=== PATIENT | female | born 1960 | race Hispanic/Latino ===

== ENCOUNTER → 2018-12-21 | Day surgery (SDC) | payer OTHER ==
[~2018-12-21] MED LIST: ALEVE220 M1 PO; FENTANYL CITRATE/PF 100MCG/2 ML INJ ONE; LIDOCAINE HCL 2% LOCAL INJ 5 ML SDV VIAL INJ ONE; MIDAZOLAM HCL 2 MG/2 ML VIAL ONE; NEXIUM40 MG PO; PROPOFOL IV EMULSION 10 MG/ML 50 ML VIAL ONE
[2018-12-21 08:40] VITALS: BP 118/77
--- NOTE | 2018-12-21 10:54 | Operative Report ---
DATE OF PROCEDURE: 12/21/2018 SURGEON: Atif Estrada MD PROCEDURES: Esophagogastroduodenoscopy with biopsies and esophageal dilatation. INDICATIONS FOR EGD: Dysphagia, upper abdominal pain, and bloating. MEDICATIONS: The patient was done under MAC, please see anesthesiologist's note. PROCEDURE IN DETAIL: With the patient in left lateral decubitus position, a flexible fiberoptic Olympus gastroscope was introduced into the esophagus under direct visualization without any difficulty. There was some patchy erythema noted in the distal esophagus. A minute nodule was noted at the GE junction that was biopsied. There was a mild stricture noted at the GE junction that was dilated to size 52-Marshallese Carroll. The scope was then advanced with ease into the stomach. Mucosa overlying the antrum and the body revealed some patchy intense erythema and low-grade to moderate edema and biopsies were obtained and sent to stain for H pylori. Pylorus was of normal contour and shape, it was intubated with ease and the scope was advanced all the way to the second portion of the duodenum. The scope was then withdrawn slowly and biopsies were obtained from the proximal second portion and the duodenal bulb to rule out sprue. The scope was then withdrawn back into the stomach and retroflexed and several hyperplastic appearing polyps were noted in the fundus, some were partially excised with cold biopsy forceps. The fundoplication appeared to be intact. The scope was then straightened out. The stomach was decompressed. The scope was subsequently withdrawn. The patient tolerated the procedure well. IMPRESSION: 1. Distal esophagitis, mild. 2. Esophageal stricture at the gastroesophageal junction dilated to size 52-Marshallese Carroll. 3. Minute nodule, gastroesophageal junction biopsied. 4. Status post Jessenia fundoplication. 5. Gastric polyps, fundus, some partially excised with cold biopsy forceps. 6. Gastritis, biopsied. Biopsies sent to stain for Helicobacter pylori. 7. Rule out sprue. PLAN: Follow up histology. Initiate or increase Protonix to 40 mg one p.o. a.c. b.i.d. Atif Estrada MD [facility]/JOSE ALBERTOL /[id number] cc: Eloy Stark MD
== END | disposition home or self-care (01) ==
LOC: OR 06:00
PROVIDERS: ATTEND Internal Medicine Gastroenterology
DX: K20.9 Esophagitis, unspecified (principal); K29.50 Unspecified chronic gastritis without bleeding; K31.89 Other diseases of stomach and duodenum; K62.5 Hemorrhage of anus and rectum; K59.00 Constipation, unspecified; N39.0 Urinary tract infection, site not specified; R00.1 Bradycardia, unspecified; R03.0 Elevated blood-pressure reading, without diagnosis of hypertension; M32.9 Systemic lupus erythematosus, unspecified; F41.9 Anxiety disorder, unspecified; Z01.810 Encounter for preprocedural cardiovascular examination; Z68.30 Body mass index [BMI] 30.0-30.9, adult; Z80.0 Family history of malignant neoplasm of digestive organs
CPT/HCPCS: 43450; 93005; J2001; J2250

== ENCOUNTER → 2019-04-30 | Day surgery (SDC) | payer OTHER ==
[~2019-04-30] MED LIST changes: +ACETAMINOPHEN 1000 MG/100 ML IV ONE; +BACITRACIN 50,000 UNIT VIAL ONE; +BUPIVACAINE HCL 0.5% INJ 30 ML VIAL INJ ONE; +BUPROPION XL150 MG PO; +CEFAZOLIN SOD 1 GM/NS 50ML 100 ML IV ONE; +DEXAMETHASONE SOD PHOS INJ 4 MG/ML VIAL ONE; +KETOROLAC TROMETHAMINE 30 MG/ML VIAL ONE; +LEVOTHYROXINE50 MCG PO; +MAGNESIUM OXID400 MG PO; +MORPHINE SULFATE INJ 4 MG/ML INJ 1ML ONE; +ONDANSETRON HCL INJ 2MG/ML 2ML 2 MG/ML VIAL ONE; +PROPOFOL IV EMULSION 10 MG/ML 20 ML VIAL ONE; -PROPOFOL IV EMULSION 10 MG/ML 50 ML VIAL ONE; +SEVOFLURANE INHAL SOLN 250 ML PEN BTL ONE; +ULTRAM50 MG PO; +VITAMIN B-121000 MCG PO; +VITAMIN D350000 UNIT PO
--- OUTSIDE RECORDS SUMMARY | 2019-04-30 05:49 | XMS REPORT ---
Author [facility] Address Unknown Phone Unavailable Care Team Providers Care Behavioral [facility] Aide Name Role Phone Unavailable Unavailable Payers Payer Name Policy Type Policy Number Effective Date Expiration Date Problems This patient has no known problems. Allergies, Adverse Reactions, Alerts Allergy Name Allergy Type Status Severity Reaction(s) Onset Date Inactive Date Treating Clinician Comments No Known Allergies DA Active U 2019-04-22 00:00:00 Medications This patient has no known medications. Results Test Description Test Time Test Comments Text Results Atomic Results Result Comments - XR TIBIA/FIBULA 2 V LT 2019-04-22 17:32:00 Patient Name: LYSSA GOLDEN Unit No: [id number] EXAMS: CPT: [id number] XR TIBIA/FIBUL[place] 2 [place] [address] COMPARISON: None available CLINICAL HISTORY: ANKLE SWELLING, INJURY RADIOGRAPHS: 2 views left tibia- fibula FINDINGS: There is a Blackwell B fracture of the distal fibula. Joint spaces are well maintained. There is no radiopaque foreign body or soft tissue gas. There is no osseous erosion. IMPRESSION: Please see ankle x-ray report discussing the distal fibular fracture at the ankle joint. No other fractures are visible. 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 No displacement. The ankle mortise does not appear to be widened. No other fractures are currently seen. Joint spaces are well maintained. There is no radiopaque foreign body or soft tissue gas. There is no osseous erosion. IMPRESSION: Blackwell B fracture of the distal fibula at 1731 Reported and signed by: Juan Shearer MD CC: Johanny Navarrete CIRCUIT RIDER; Nakul Aden MD Technologist: Krishan Carrero Time: DAP (Gy m2): Air Kerma (mGy): Trscr Dt/Tm: 04/22/2019 (1731) by:[email or web address] Orig Print D/T: S: 04/22/2019 (0601) BATCH NO: N/A Name: LYSSA GOLDEN Phys: Johanny Chairez [employer] [facility] : 1960 Age: 59 Sex: F Zachary Marrero Loc: T.ERS Exam Date: 04/22/2019 Status: REG ER PH: FAX: PAGE 1 Signed Report
[2019-04-30 10:45] VITALS: BP 134/71
--- NOTE | 2019-04-30 14:45 | Operative Report ---
DATE OF PROCEDURE: 04/30/2019 SURGEON: Charles Mcclain MD PREOPERATIVE DIAGNOSIS: Left bimalleolar equivalent ankle fracture. POSTOPERATIVE DIAGNOSIS: Left bimalleolar equivalent ankle fracture. OPERATIONS AND PROCEDURES PERFORMED: 1. The patient underwent a closed reduction of the left ankle mortise. 2. An open reduction and internal fixation of a left fibular fracture. TEST BAKER: KATALINA Rick. ANESTHESIA: General endotracheal intubation anesthesia. IV FLUIDS: Per the anesthesia record. BRIEF DESCRIPTION OF THE PATIENT'S OPERATIVE PROCEDURE: Ms. Gallo was taken to the operating room and placed in the supine position on the operating room table. Following induction of general anesthesia as well as endotracheal intubation, the patient's left lower extremity was examined under anesthesia. She was found to have bruising and swelling about the left ankle joint. Fluoroscopic evaluation of the left ankle demonstrated a displaced fibular fracture with widening of the ankle mortise. The patient's lower extremity was prepped and draped in standard surgical fashion. The case was begun by creating an incision over the lateral aspect of the fibula. This incision was carried through skin only. Blunt dissection was used to deepen the incision to the lateral aspect of the fibula. Care was taken to identify and protect the superficial peroneal nerve throughout this portion of the case. The fracture site was easily identified and isolated. The fracture site was clean. A fracture reduction clamp was used to reduce the fracture to an anatomic position. A plate was then contoured to the lateral aspect of the fibula and this plate was affixed to the fibula with a combination of cortical and locking screws. This provided rigid stabilization of the patient's injury. Repeat fluoroscopic evaluation of the ankle joint demonstrated reduced fracture and ankle mortise. The hardware was in good position. The wound was copiously irrigated. The wound was then closed in a multilayer fashion. A well-padded multisided splint was then affixed to the left lower extremity. The patient was then awakened and taken to the postanesthesia care unit in stable condition. Nathaly Lau acted as certified first assistant for this case and was necessary for both prepping and draping the patient as well as the retraction of soft tissue and the closure of the wound that allowed this case to be successful. Edward B Mcclain, MD [facility] /[id number]
== END | disposition home or self-care (01) ==
LOC: OR 05:46
PROVIDERS: ATTEND Specialist
DX: S82.842A Displaced bimalleolar fracture of left lower leg, initial encounter for closed fracture (principal); S93.422A Sprain of deltoid ligament of left ankle, initial encounter; Z01.810 Encounter for preprocedural cardiovascular examination
CPT/HCPCS: 76000; 93005; J0690; J1100; J1885; J2001; J2250; J2270; J2405; J3010

== ENCOUNTER 2019-09-16 17:00 | Outpatient (RCR) | payer OTHER ==
[~2019-09-16 17:00] MED LIST changes: -ACETAMINOPHEN 1000 MG/100 ML IV ONE; -BACITRACIN 50,000 UNIT VIAL ONE; -BUPIVACAINE HCL 0.5% INJ 30 ML VIAL INJ ONE; -CEFAZOLIN SOD 1 GM/NS 50ML 100 ML IV ONE; -DEXAMETHASONE SOD PHOS INJ 4 MG/ML VIAL ONE; -FENTANYL CITRATE/PF 100MCG/2 ML INJ ONE; -KETOROLAC TROMETHAMINE 30 MG/ML VIAL ONE; -LIDOCAINE HCL 2% LOCAL INJ 5 ML SDV VIAL INJ ONE; -MIDAZOLAM HCL 2 MG/2 ML VIAL ONE; -MORPHINE SULFATE INJ 4 MG/ML INJ 1ML ONE; -ONDANSETRON HCL INJ 2MG/ML 2ML 2 MG/ML VIAL ONE; -PROPOFOL IV EMULSION 10 MG/ML 20 ML VIAL ONE; -SEVOFLURANE INHAL SOLN 250 ML PEN BTL ONE
== END 2019-09-27 ==
LOC: PT 17:00
PROVIDERS: ATTEND Specialist
DX: S82.892D Other fracture of left lower leg, subsequent encounter for closed fracture with routine healing (principal); M25.572 Pain in left ankle and joints of left foot; M25.672 Stiffness of left ankle, not elsewhere classified; R26.2 Difficulty in walking, not elsewhere classified

== ENCOUNTER → 2023-05-07 | Day surgery (SDC) | payer OTHER ==
[~2023-05-07] MED LIST changes: +AMLODIPINE BESYL5 MG PO; +FENTANYL CITRATE/PF 100MCG/2 ML INJ ONE; +HYOSCYAMINE SULFATE 0.5 MG/ML INJ ONE; +LACTATED RINGER'S 1,000 ML ONE; +METOCLOPRAMIDE HCL 10 MG/2ML VIAL ONE; +PROPOFOL IV EMULSION 100 ML IV ONE
[2023-05-07 17:11] VITALS: TEMP 97.4
[2023-05-07 17:40] VITALS: BP 121/60; PULSE 98; RESP 16; O2SAT 99
[2023-05-07 18:55] LABS: WBC,FECAL (FECAL LACTOFERRIN) POSITIVE (NEGATIVE)
[2023-05-09 15:14] LABS: ENDOMYSIAL ANTIBODIES, IGA Negative (Negative)
== END | disposition home or self-care (01) ==
LOC: OR 12:17
PROVIDERS: ATTEND Internal Medicine Gastroenterology
DX: K29.40 Chronic atrophic gastritis without bleeding (principal); K20.90 Esophagitis, unspecified without bleeding; K52.9 Noninfective gastroenteritis and colitis, unspecified; K62.89 Other specified diseases of anus and rectum; K64.8 Other hemorrhoids; K62.5 Hemorrhage of anus and rectum; Z87.11 Personal history of peptic ulcer disease; Z80.0 Family history of malignant neoplasm of digestive organs; I10 Essential (primary) hypertension; E03.9 Hypothyroidism, unspecified; Z01.810 Encounter for preprocedural cardiovascular examination; Z79.899 Other long term (current) drug therapy
CPT/HCPCS: 43239; 45380; 82784; 83516; 83630; 83993; 86140; 86256; 87324; 87449; 93005; C9113; J1980; J2704; J2765; J3010; J7121; 45378